=== PATIENT | male | born 1945 | race Caucasian/White ===

== ENCOUNTER 2019-05-25 10:15 | Emergency (ER) | payer MEDICARE ==
[~2019-05-25] VITALS: Ht 185.4 cm; Wt 93.6 kg
[2019-05-25 10:18] VITALS: BP 154/80
== END 2019-05-25 11:07 | disposition home or self-care (01) ==
LOC: ED 10:42
DX: H00.015 Hordeolum externum left lower eyelid (principal)
CPT/HCPCS: 99283